=== PATIENT | female | born 1970 | race Caucasian/White ===

== ENCOUNTER → 2017-04-04 | Outpatient (CLI) | payer OTHER ==
[~2017-04-04] MED LIST: BENADRYL25 MG PO; DOXYCYCLINE100 MG PO; HYDROCODONE BIT1 T11 PO; IBUPROFEN 30 M800 MG PO; LIPITOR40 MG PO; MEDROL DOSEPAK4 MG PO; MIRALAX17 GM/PACK PO; Miralax Powder255 GM PO; NORFLEX100 MG PO; PRILOSEC20 MG PO; TRAMADOL HCL50 MG PO; TYLENOL325 M1 PO; VICODIN 500 MG-1 TAB PO; VITAMIN PO; ZITHROMAX Z PA250 MG PO
[2017-04-04 18:00] LABS: BASO # 0.1 10*3/uL (0.0-0.1); BASO % 0.7 % (0.0-1.0); EOS # 0.2 10*3/uL (0.0-0.4); EOS % 2.3 % (1.0-4.0); HEMATOCRIT 48.9 % (37.0-47.0); HEMOGLOBIN 16.7 g/dl (12.0-16.0); LYMPH # 3.7 10*3/uL (1.3-4.4); LYMPH % 35.8 % (27.0-41.0); MEAN CELL VOLUME 91.1 fl (81.0-99.0); MEAN CORPUSCULAR HGB 31.1 pg (27.0-31.0); MEAN CORPUSCULAR HGB CONC 34.2 g/dl (33.0-37.0); MEAN PLATELET VOLUME 9.7 fl (9.6-12.3); MONO # 0.5 10*3/uL (0.1-1.0); MONO % 5.1 % (3.0-9.0); NEUT # 5.8 10*3/uL (2.3-7.9); NEUT % 55.8 % (47.0-73.0); PLATELET COUNT AUTOMATED 238 10*3/uL (130-400); RED BLOOD COUNT 5.37 10*6/uL (4.10-5.10); RED CELL DISTRI WIDTH 12.8 % (0-14.5); WHITE BLOOD COUNT 10.4 10*3/uL (4.8-10.8)
[2017-04-04 18:15] LABS: ALBUMIN 4.3 gm/dl (3.1-4.5); ALKALINE PHOSPHATASE 72 U/L (45-117); BUN 11 mg/dl (7-24); CHLORIDE 105 mmol/L (98-107); CREATININE 0.69 mg/dL (0.55-1.02); POTASSIUM 4.2 mmol/L (3.5-5.1); SGOT/AST 21 IU/L (3-35); SGPT/ALT 24 U/L (12-78); SODIUM 140 mmol/L (136-145); TOTAL PROTEIN 8.2 gm/dL (6.4-8.2)
== END | disposition home or self-care (01) ==
LOC: LAB 17:15
PROVIDERS: Internal Medicine
DX: B34.9 Viral infection, unspecified (principal)

== ENCOUNTER 2018-12-15 11:39 | Emergency (ER) | payer OTHER ==
[~2018-12-15] VITALS: Ht 175.2 cm; Wt 61.2 kg
[2018-12-15 11:40] VITALS: BP 148/79
[2018-12-15 12:20] LABS: BILIRUBIN NEGATIVE (NEGATIVE); BLOOD 1+ (NEGATIVE); CLARITY SL CLOUDY (CLEAR); COLOR YELLOW (YELLOW); GLUCOSE NEGATIVE (NEGATIVE); KETONE NEGATIVE (NEGATIVE); LEUKO ESTERASE TRACE (NEGATIVE); NITRITE NEGATIVE (NEGATIVE); SPECIFIC GRAVITY 1.015 (1.005-1.030); UROBILINOGEN 0.2 E.U./dl (0.2-1.0)
[2018-12-15 12:32] LABS: EPITHELIAL CELLS 16-20; WBC 21-30 wbc/hpf (0-5)
[2018-12-15] MEDS ORDERED: SEPTDS PO (12:44)
[2018-12-15] MEDS ORDERED: IBUPROFEN600 MG PO (12:44)
[2018-12-15] MEDS ORDERED: PYRIDIUM200 M1 PO (12:44)
== END 2018-12-15 13:10 | disposition home or self-care (01) ==
LOC: ED 11:39
PROVIDERS: Physician Assistant
DX: N39.0 Urinary tract infection, site not specified (principal); Z88.1 Allergy status to other antibiotic agents; Z88.0 Allergy status to penicillin; Z79.899 Other long term (current) drug therapy

== ENCOUNTER 2018-12-18 16:55 | Emergency (ER) | payer OTHER ==
[~2018-12-18] VITALS: Ht 175.2 cm; Wt 71.7 kg
[~2018-12-18 16:55] MED LIST changes: +IBUPROFEN600 MG PO; +PYRIDIUM200 M1 PO; +SEPTDS PO
[2018-12-18 16:56] VITALS: BP 137/74
[2018-12-18 18:06] LABS: BILIRUBIN NEGATIVE (NEGATIVE); BLOOD 1+ (NEGATIVE); CLARITY CLEAR (CLEAR); COLOR YELLOW (YELLOW); GLUCOSE NEGATIVE (NEGATIVE); KETONE NEGATIVE (NEGATIVE); LEUKO ESTERASE NEGATIVE (NEGATIVE); NITRITE NEGATIVE (NEGATIVE); SPECIFIC GRAVITY >= 1.030 (1.005-1.030); UROBILINOGEN 0.2 E.U./dl (0.2-1.0)
[2018-12-18 18:12] LABS: BACTERIA 2+
[2018-12-18 18:13] LABS: MUCOUS 1+
[2018-12-18] MEDS ORDERED: NEURONTIN300 MG PO (19:18)
[2018-12-18] MEDS ORDERED: ROBAXIN-750750 MG PO (19:19)
== END 2018-12-18 19:28 | disposition home or self-care (01) ==
LOC: ED 16:55
PROVIDERS: Emergency Medicine
DX: R10.9 Unspecified abdominal pain (principal); Z90.89 Acquired absence of other organs; Z79.899 Other long term (current) drug therapy; Z88.1 Allergy status to other antibiotic agents; Z88.0 Allergy status to penicillin

== ENCOUNTER → 2020-03-10 | Outpatient (CLI) | payer OTHER ==
[~2020-03-10] MED LIST changes: +NEURONTIN300 MG PO; +ROBAXIN-750750 MG PO
== END | disposition home or self-care (01) ==
LOC: COVID19 16:05
PROVIDERS: ATTEND Internal Medicine
DX: Z20.822 Contact with and (suspected) exposure to COVID-19 (principal)

== ENCOUNTER → 2020-03-14 | Outpatient (CLI) | payer OTHER | END | disposition home or self-care (01) | LOC: COVID19 13:22 | PROVIDERS: ATTEND Internal Medicine | DX: J44.1 Chronic obstructive pulmonary disease with (acute) exacerbation (principal); Z20.828 Contact with and (suspected) exposure to other viral communicable diseases ==

== ENCOUNTER → 2020-04-19 | Outpatient (CLI) | payer OTHER | END | disposition home or self-care (01) | LOC: RAD 09:42 | PROVIDERS: ATTEND Internal Medicine | DX: J44.1 Chronic obstructive pulmonary disease with (acute) exacerbation (principal) ==

== ENCOUNTER → 2020-05-12 | Outpatient (CLI) | payer OTHER ==
[2020-05-12 09:25] LABS: BASO % 0.6 % (0.0-1.0); EOS # 0.2 10*3/uL (0.0-0.4); EOS % 2.8 % (1.0-4.0); HEMATOCRIT 43.3 % (37.0-47.0); LYMPH # 2.2 10*3/uL (1.3-4.4); LYMPH % 31.6 % (27.0-41.0); MEAN CELL VOLUME 93.3 fl (81.0-99.0); MEAN CORPUSCULAR HGB 30.6 pg (27.0-31.0); MEAN CORPUSCULAR HGB CONC 32.8 g/dl (33.0-37.0); MEAN PLATELET VOLUME 9.6 fl (9.6-12.3); MONO # 0.6 10*3/uL (0.1-1.0); MONO % 8.1 % (3.0-9.0); NEUT # 3.9 10*3/uL (2.3-7.9); NEUT % 56.6 % (47.0-73.0); PLATELET COUNT AUTOMATED 277 10*3/uL (130-400); RED BLOOD COUNT 4.64 10*6/uL (4.10-5.10); RED CELL DISTRI WIDTH 13.4 % (0-14.5); WHITE BLOOD COUNT 6.8 10*3/uL (4.8-10.8)
[2020-05-12 09:48] LABS: CHLORIDE 109 mmol/L (98-107); POTASSIUM 4.1 mmol/L (3.5-5.1); SODIUM 142 mmol/L (136-145)
[2020-05-12 10:18] LABS: ALBUMIN 3.6 gm/dl (3.1-4.5); ALKALINE PHOSPHATASE 72 U/L (45-117); BUN 13 mg/dl (7-24); CREATININE 0.63 mg/dL (0.55-1.02); FREE T4 1.09 ng/dl (0.76-1.46); SGOT/AST 14 IU/L (3-35); SGPT/ALT 20 U/L (12-78); THYROID STIM HORMONE (HS) 0.963 uIU/ml (0.358-4.75); TOTAL PROTEIN 7.2 gm/dL (6.4-8.2)
== END | disposition home or self-care (01) ==
LOC: LAB 08:45
PROVIDERS: ATTEND Internal Medicine
DX: R53.1 Weakness (principal)

== ENCOUNTER → 2020-06-09 | Outpatient (CLI) | payer OTHER ==
[2020-06-10 05:06] LABS: RHEUMATOID ARTHRITIS FACTOR <10.0 IU/mL (0.0-13.9)
[2020-06-10 15:07] LABS: ANTI-DSDNA ANTIBODIES 2 IU/mL (0-9); ANTI-RNP ANTIBODIES <0.2 AI (0.0-0.9); ANTISCLERODERMA-70 AB <0.2 AI (0.0-0.9); SJOGREN ANTI-SS-A <0.2 AI (0.0-0.9); SJOREN AB, ANTI-SS-B <0.2 AI (0.0-0.9)
== END | disposition home or self-care (01) ==
LOC: LAB 09:15
PROVIDERS: ATTEND Internal Medicine
DX: R76.8 Other specified abnormal immunological findings in serum (principal)

== ENCOUNTER → 2020-09-02 | Outpatient (CLI) | payer OTHER | END | disposition home or self-care (01) | LOC: RAD 14:37 | PROVIDERS: ATTEND Internal Medicine | DX: M47.814 Spondylosis without myelopathy or radiculopathy, thoracic region (principal); M25.78 Osteophyte, vertebrae ==

== ENCOUNTER 2022-02-11 12:54 | Emergency (ER) | payer OTHER ==
[~2022-02-11] VITALS: Ht 175.2 cm; Wt 63.5 kg
[2022-02-11 13:11] VITALS: BP 147/75
[2022-02-11] MEDS ORDERED: PERCOCET 5-3251 EACH PO (16:25)
[2022-02-11] MEDS ORDERED: Motrin,Rufen800 MG PO (16:25)
== END 2022-02-11 16:40 | disposition home or self-care (01) ==
LOC: ED 12:54
DX: S60.212A Contusion of left wrist, initial encounter (principal); Z79.899 Other long term (current) drug therapy; Z88.1 Allergy status to other antibiotic agents; Z88.0 Allergy status to penicillin; W23.0XXA Caught, crushed, jammed, or pinched between moving objects, initial encounter; Y93.89 Activity, other specified; Y92.69 Other specified industrial and construction area as the place of occurrence of the external cause; Y99.9 Unspecified external cause status

== ENCOUNTER 2023-07-11 08:55 | Emergency (ER) | payer OTHER ==
[~2023-07-11] VITALS: Ht 170.1 cm; Wt 68.0 kg
[~2023-07-11 08:55] MED LIST changes: +Motrin,Rufen800 MG PO; +PERCOCET 5-3251 EACH PO
[2023-07-11 09:13] VITALS: BP 166/83
[2023-07-11] MEDS ORDERED: IOHEXOL 350 MG/ML 100 ML VIAL IV ONE ×2 (09:35→09:40)
[2023-07-11] MEDS ORDERED: SODIUM CHLORIDE 0.9% 100 ML IV ONE (09:35)
[2023-07-11] MEDS ORDERED: SODIUM CHLORIDE 0.9% 100 ML BAG IV ONE (09:40)
[2023-07-11 09:51] LABS: BASO # 0.1 10*3/uL (0.0-0.1); BASO % 0.9 % (0.0-1.0); EOS # 0.1 10*3/uL (0.0-0.4); HEMATOCRIT 43.7 % (37.0-47.0); LYMPH # 1.9 10*3/uL (1.3-4.4); MEAN CELL VOLUME 91.8 fl (81.0-99.0); MEAN CORPUSCULAR HGB CONC 32.7 g/dl (33.0-37.0); MEAN PLATELET VOLUME 9.1 fl (9.6-12.3); MONO # 0.5 10*3/uL (0.1-1.0); MONO % 6.9 % (3.0-9.0); NEUT # 4.3 10*3/uL (2.3-7.9); NEUT % 63.1 % (47.0-73.0); PLATELET COUNT AUTOMATED 264 10*3/uL (130-400); RED BLOOD COUNT 4.76 10*6/uL (4.10-5.10); WHITE BLOOD COUNT 6.9 10*3/uL (4.8-10.8)
[2023-07-11 10:01] LABS: ACT PARTIAL THROMBO TIME 26.1 SECONDS (20.0-32.1)
[2023-07-11 10:16] LABS: ALKALINE PHOSPHATASE 74 U/L (46-116); BUN 12 mg/dl (9-23); CHLORIDE 106 mmol/L (98-107); LIPASE 45 U/L (12-53); POTASSIUM 4.8 mmol/L (3.4-5.1); TOTAL PROTEIN 6.5 gm/dL (6.0-8.0)
[2023-07-11 10:21] LABS: ETHYL ALCOHOL < 3.0 mg/dl (<3); SGPT/ALT < 7 U/L (5-49)
[2023-07-11 10:27] LABS: BILIRUBIN Negative (Negative); BLOOD Negative (Negative); CLARITY Clear (Clear); COLOR Yellow (Yellow); GLUCOSE Negative (Negative); KETONE Negative (Negative); LEUKO ESTERASE Negative (Negative); NITRITE Negative (Negative); UROBILINOGEN 0.2 E.U./dl (0.0-1.0)
[2023-07-11 10:36] LABS: URINE AMPHETAMINES Negative (1000ng/ml); URINE BARBITURATES Negative (200ng/ml); URINE BENZODIAZEPINES Negative (200ng/ml); URINE CANNABINOIDS (THC) Negative (50ng/ml); URINE COCAINE Negative (300ng/ml); URINE METHADONE Negative (300ng/ml); URINE OPIATES Negative (300ng/ml); URINE PHENCYCLIDINE Negative (25ng/ml)
[2023-07-11 10:42] LABS: EPITHELIAL CELLS 0-2; WBC 0-2 wbc/hpf (0-5)
[2023-07-11] MEDS ORDERED: ASPIRIN ENTERIC COATED 81 MG TAB PO ONE (11:00)
[2023-07-11] MEDS ORDERED: Clopidogrel Hydrogen Sulfate 75 MG TAB PO ONE (11:00)
[2023-07-11] MEDS ORDERED: SODIUM CHLORIDE 0.9% 1,000 ML IV ONE (12:10)
== END 2023-07-11 16:50 | disposition short-term general hospital (02) ==
LOC: ED 08:55
PROVIDERS: Internal Medicine
DX: R53.1 Weakness (principal); M79.10 Myalgia, unspecified site; Z91.040 Latex allergy status; Z88.0 Allergy status to penicillin; Z88.1 Allergy status to other antibiotic agents; Z98.890 Other specified postprocedural states

== ENCOUNTER → 2023-07-20 | Outpatient (CLI) | payer OTHER ==
[~2023-07-20] MED LIST changes: +ASPIRIN ADULT L81 M2 PO; +ATORVASTATIN CA80 M1 PO; +CLOPIDOGREL75 MG PO; +MAGNESIUM OXID400 MG PO; +VITAMIN B-12100 MCG PO
== END ==
LOC: US 00:57
PROVIDERS: ATTEND Internal Medicine
DX: E04.2 Nontoxic multinodular goiter (principal); E07.9 Disorder of thyroid, unspecified

== ENCOUNTER 2023-07-21 11:06 | Emergency (ER) | payer OTHER ==
[~2023-07-21] VITALS: Wt 65.3 kg
[~2023-07-21 11:06] MED LIST changes: -ASPIRIN ADULT L81 M2 PO; -ATORVASTATIN CA80 M1 PO; -CLOPIDOGREL75 MG PO; -MAGNESIUM OXID400 MG PO; -VITAMIN B-12100 MCG PO
[2023-07-21 11:21] VITALS: BP 136/87
[2023-07-21] MEDS ORDERED: diphenhydrAMINE hydrochloride 50 MG/ML VIAL IV ONE (11:35)
[2023-07-21] MEDS ORDERED: Metoclopramide Hydrochloride 10 MG/2 ML AMP IV ONE (11:35)
[2023-07-21] MEDS ORDERED: SODIUM CHLORIDE 0.9% 1,000 ML IV ONE (11:35)
[2023-07-21 11:51] LABS: BASO # 0.1 10*3/uL (0.0-0.1); EOS # 0.1 10*3/uL (0.0-0.4); EOS % 1.9 % (1.0-4.0); HEMATOCRIT 44.7 % (37.0-47.0); LYMPH # 2.5 10*3/uL (1.3-4.4); LYMPH % 33.6 % (27.0-41.0); MEAN CELL VOLUME 90.5 fl (81.0-99.0); MEAN CORPUSCULAR HGB 30.4 pg (27.0-31.0); MEAN CORPUSCULAR HGB CONC 33.6 g/dl (33.0-37.0); MEAN PLATELET VOLUME 9.4 fl (9.6-12.3); MONO # 0.5 10*3/uL (0.1-1.0); MONO % 7.1 % (3.0-9.0); NEUT # 4.1 10*3/uL (2.3-7.9); NEUT % 56.3 % (47.0-73.0); PLATELET COUNT AUTOMATED 285 10*3/uL (130-400); RED BLOOD COUNT 4.94 10*6/uL (4.10-5.10); WHITE BLOOD COUNT 7.3 10*3/uL (4.8-10.8)
[2023-07-21 12:02] LABS: ACT PARTIAL THROMBO TIME 26.7 SECONDS (20.0-32.1)
[2023-07-21] MEDS ORDERED: ATORVASTATIN CA80 M1 PO (12:05)
[2023-07-21] MEDS ORDERED: CLOPIDOGREL75 MG PO (12:05)
[2023-07-21] MEDS ORDERED: ASPIRIN ADULT L81 M2 PO (12:05)
[2023-07-21] MEDS ORDERED: MAGNESIUM OXID400 MG PO (12:05)
[2023-07-21] MEDS ORDERED: VITAMIN B-12100 MCG PO (12:06)
[2023-07-21 12:18] LABS: ALKALINE PHOSPHATASE 85 U/L (46-116); BUN 12 mg/dl (9-23); CHLORIDE 107 mmol/L (98-107); POTASSIUM 3.7 mmol/L (3.4-5.1); SGPT/ALT 22 U/L (5-49); TOTAL PROTEIN 7.5 gm/dL (6.0-8.0)
[2023-07-21] MEDS ORDERED: Ketorolac Tromethamine 15 MG/ML VIAL IV ONE (13:35)
== END 2023-07-21 14:24 | disposition home or self-care (01) ==
LOC: ED 11:06
PROVIDERS: Emergency Medicine
DX: R51.9 Headache, unspecified (principal); R42 Dizziness and giddiness; R20.0 Anesthesia of skin; Z86.73 Personal history of transient ischemic attack (TIA), and cerebral infarction without residual deficits; F17.200 Nicotine dependence, unspecified, uncomplicated; Z88.1 Allergy status to other antibiotic agents; Z88.0 Allergy status to penicillin; Z98.890 Other specified postprocedural states

== ENCOUNTER 2023-09-19 13:58 | Emergency (ER) | payer OTHER ==
[~2023-09-19] VITALS: Ht 180.3 cm; Wt 65.8 kg
[~2023-09-19 13:58] MED LIST changes: +ASPIRIN ADULT L81 M2 PO; +ATORVASTATIN CA80 M1 PO; +CLOPIDOGREL75 MG PO; +MAGNESIUM OXID400 MG PO; +VITAMIN B-12100 MCG PO
[2023-09-19 14:07] VITALS: BP 151/82
[2023-09-19] MEDS ORDERED: methylPREDNISolone sod succ 125 MG VIAL IM ONE (14:40)
== END 2023-09-19 15:53 | disposition home or self-care (01) ==
LOC: ED 13:58
DX: J02.9 Acute pharyngitis, unspecified (principal); F17.290 Nicotine dependence, other tobacco product, uncomplicated; Z86.73 Personal history of transient ischemic attack (TIA), and cerebral infarction without residual deficits; Z88.0 Allergy status to penicillin; Z88.1 Allergy status to other antibiotic agents; Z98.890 Other specified postprocedural states

== ENCOUNTER → 2024-01-11 | Outpatient (CLI) | payer OTHER | END | disposition home or self-care (01) | LOC: US 01-02 12:30 | PROVIDERS: ATTEND Internal Medicine | DX: R10.10 Upper abdominal pain, unspecified (principal) ==

== ENCOUNTER 2024-06-24 19:46 | Emergency (ER) | payer OTHER ==
[~2024-06-24] VITALS: Ht 172.7 cm; Wt 69.4 kg
[2024-06-24 19:57] VITALS: BP 137/68
[2024-06-24] MEDS ORDERED: Acetaminophen/Oxycodone 5 MG/325 MG TABLET PO ONE (20:20)
[2024-06-24] MEDS ORDERED: methylPREDNISolone sod succ 125 MG VIAL IM ONE (21:30)
[2024-06-24] MEDS ORDERED: MEDROL DOSEPAK4 MG PO (21:49)
[2024-06-24] MEDS ORDERED: NAPROSYN500 MG PO (21:49)
== END 2024-06-24 22:06 | disposition home or self-care (01) ==
LOC: ED 19:46
DX: S76.012A Strain of muscle, fascia and tendon of left hip, initial encounter (principal); M79.604 Pain in right leg; T46.6X5A Adverse effect of antihyperlipidemic and antiarteriosclerotic drugs, initial encounter; E78.00 Pure hypercholesterolemia, unspecified; Z88.1 Allergy status to other antibiotic agents; Z88.0 Allergy status to penicillin; Z79.82 Long term (current) use of aspirin; Z79.899 Other long term (current) drug therapy; Z98.890 Other specified postprocedural states; X58.XXXA Exposure to other specified factors, initial encounter; Y93.89 Activity, other specified; Y92.89 Other specified places as the place of occurrence of the external cause; Y99.8 Other external cause status

== ENCOUNTER 2024-08-21 17:06 | Emergency (ER) | payer OTHER ==
[~2024-08-21] VITALS: Wt 68.0 kg
[~2024-08-21 17:06] MED LIST changes: +NAPROSYN500 MG PO
[2024-08-21 17:29] VITALS: BP 137/84
[2024-08-21] MEDS ORDERED: Acetaminophen/Oxycodone 5 MG/325 MG TABLET PO ONE (19:40)
[2024-08-21] MEDS ORDERED: HYDROmorphONE Hydrochloride 0.5 MG/0.5 ML SYRINGE IM ONE (21:30)
[2024-08-21] MEDS ORDERED: NAPROSYN500 MG PO (22:23)
== END 2024-08-21 22:42 | disposition home or self-care (01) ==
LOC: ED 17:06
DX: S70.02XA Contusion of left hip, initial encounter (principal); S30.0XXA Contusion of lower back and pelvis, initial encounter; Z79.82 Long term (current) use of aspirin; Z79.899 Other long term (current) drug therapy; Z88.0 Allergy status to penicillin; Z88.1 Allergy status to other antibiotic agents; Z98.890 Other specified postprocedural states; W10.8XXA Fall (on) (from) other stairs and steps, initial encounter; Y93.89 Activity, other specified; Y92.89 Other specified places as the place of occurrence of the external cause; Y99.8 Other external cause status

== ENCOUNTER → 2024-09-21 | Outpatient (CLI) | payer OTHER | END | disposition home or self-care (01) | LOC: US 12:55 | PROVIDERS: ATTEND Internal Medicine | DX: E04.2 Nontoxic multinodular goiter (principal) ==